=== PATIENT | female | born 1955 | race Caucasian/White ===

== ENCOUNTER 2025-03-06 13:43 | Outpatient (CLI) | payer OTHER ==
[~2025-03-06 13:43] MED LIST: MEVACOR10 MG; SYNTHROID125 MCG
== END 2025-03-06 13:52 | disposition home or self-care (01) ==
LOC: SONOGRAMA 13:43
DX: E04.2 Nontoxic multinodular goiter (principal); L04.0 Acute lymphadenitis of face, head and neck

== ENCOUNTER 2025-03-21 07:51 | Outpatient (CLI) | payer OTHER | END 2025-03-21 07:53 | disposition home or self-care (01) | LOC: SONOGRAMA 07:51 | PROVIDERS: ATTEND Pathology Anatomic Pathology & Clinical Pathology | DX: D34 Benign neoplasm of thyroid gland (principal); E07.89 Other specified disorders of thyroid; E06.3 Autoimmune thyroiditis; E04.2 Nontoxic multinodular goiter ==